=== PATIENT | male | born 1955 | race American Indian/Alaskan Native ===

== ENCOUNTER 2019-09-24 09:46 | Day surgery (SDC) | payer OTHER ==
[~2019-09-24 09:46] MED LIST: ceFAZolin/Water 2 GM/20 ML 2 GM/20 ML SYRINGE IV NR
--- NOTE | 2019-09-24 10:42 | Anesthesia Consultation ---
Anesthesia Consult and Med Hx Date of service: 09/24/19 - Airway Anesthetic Teeth Evaluation: Good ROM Head & Neck: Adequate Mental/Hyoid Distance: Adequate Mallampati Class: Class II Intubation Access Assessment: Good - Pulmonary Exam CTA: Yes - Cardiac Exam Cardiac Exam: No Murmur - Pre-Operative Health Status ASA Pre-Surgery Classification: ASA2 Proposed Anesthetic Plan: General - Pulmonary Hx Smoking: No Hx Asthma: No COPD: No Hx Sleep Apnea: Yes (DX SLEEP APNEA , NO CPAP USE.) - Cardiovascular System Hx Hypertension: No Hx Heart Attack/AMI: No - Central Nervous System Hx Seizures: No Hx Back Pain: Yes (STIFF) Hx Psychiatric Problems: Yes (PTSD) - Hematic Hx Anemia: No Hx Sickle Cell Disease: No - Other Systems Hx Alcohol Use: No Hx Substance Use: No Hx Cancer: No
--- NOTE | 2019-09-24 10:42 | Anesthesia Day of Surgery ---
Anesthesia Day of Surgery - Day of Surgery Patient Examined: Yes Patient H&P Reviewed: Yes Patient is NPO: Yes
[2019-09-24] MEDS ORDERED: FAMOTIDINE 20 MG TAB PO NR (11:00)
[2019-09-24] MEDS ORDERED: GABAPENTIN 300 MG CAP PO NR (11:00)
[2019-09-24] MEDS ORDERED: LACTATED RINGERS 1,000 ML IV SCH ×2 (11:00→12:00)
[2019-09-24] MEDS ORDERED: MIDAZOLAM 2 MG/2 ML INJ IV NR (11:00)
[2019-09-24] MEDS ORDERED: CELECOXIB 200 MG CAP PO NR (11:00)
[2019-09-24] MEDS ORDERED: CELECOXIB 200 MG CAP ONE (11:15)
[2019-09-24] MEDS ORDERED: LACTATED RINGERS 1,000 ML ONE ×2 (11:15→15:30)
[2019-09-24] MEDS ORDERED: GABAPENTIN 300 MG CAP ONE (11:15)
[2019-09-24] MEDS ORDERED: fentaNYL 100 MCG/2 ML INJ IV ONE (12:05)
[2019-09-24] MEDS ORDERED: BUPIVACAINE/PF (0.5%) 5 MG/1 ML 30 ML VIAL INFILTRATI ONE (12:24)
[2019-09-24] MEDS ORDERED: LIDOCAINE MPF (2%) 20 MG/1 ML VIAL 5 ML ONE (14:48)
[2019-09-24] MEDS ORDERED: MIDAZOLAM 2 MG/2 ML INJ ONE (14:48)
[2019-09-24] MEDS ORDERED: ROCURONIUM 50 MG/5 ML INJ IV ONE (14:48)
[2019-09-24] MEDS ORDERED: PROPOFOL 200 MG/20 ML VIAL IV ONE (14:48)
[2019-09-24] MEDS ORDERED: fentaNYL 100 MCG/2 ML INJ ONE (14:49)
[2019-09-24] MEDS ORDERED: ePHEDrine SULFATE 50 MG/1 ML INJ ONE (15:25)
[2019-09-24] MEDS ORDERED: SODIUM CHLORIDE 0.9% IRRIG SOLN 3000 ML IR ONE (15:38)
[2019-09-24] MEDS ORDERED: SODIUM CHLORIDE P/F VIAL 10 ML 10 ML ONE (15:43)
[2019-09-24] MEDS ORDERED: GLYCOPYRROLATE 0.4 MG/2 ML INJ ONE (17:21)
[2019-09-24] MEDS ORDERED: NEOSTIGMINE 10MG/10 ML INJ MDV ONE (17:21)
--- NOTE | 2019-09-24 17:32 | Procedure Note ---
Date of procedure: 09/24/19 Pre-op diagnosis: Rotator cuff tear right shoulder Post-op diagnosis: same Procedure: Arthroscopy right shoulder with subacromial decompression and rotator cuff tendon using suture anchors Procedure The patient was brought to the OR after being given a scalene nerve block for postop pain management . He was placed in the OR table in supine position following induction and intubation by anesthesia patient was placed in the left lateral decubitus position the right upper extremity was prepped and draped in the usual sterile manner. A timeout procedure was done to identify the patient and the correct operative site. Routine arthroscopic portals were made following introduction of the arthroscope and instruments and insufflation of the subacromial space with normal saline solution patient was noted to have a full-thickness rotator cuff tear which extended from the supraspinatus anteriorly towards the infraspinatus posteriorly in addition he was also noted to have abundant synovial bursal thickening as well as significant impingement from the acromion and acromioclavicular joints. Using a tissue ablator the soft tissue was removed from both the bursal tissues as well as the periosteal tissues overlying the distal acromion and acromioclavicular joints A large bur was used to debride the bony impingement again this was done under arthroscopic visualization. The anatomic footprint was then seen and debrided using the tissue ablator. The rotator cuff tendons was grasped using a tissue grasper and appeared to move well in the direction of anatomic repair at the footprint. Next 2 suture anchor sutures were placed into these supraspinatus tendon anteriorly as well as the infraspinatus tendon posteriorly the suture anchors were secured into the greater tuberosity followed by tightening of the sutures and pulling the rotator cuff tendon firmly onto the anatomic footprint arthroscopic photographs were obtained showing good placement of the rotator cuff repair following this the wound was copiously irrigated via stab wounds were repaired with 2 postop dressings were applied the patient was extubated and was taken to postanesthesia recovery in stable condition. Patient will also receive a scalene nerve block for postop pain management Anesthesia: MAC, regional Surgeon: WILLARD TORRES Numerical Control Operator: NANDA KEITA Estimated blood loss: minimal Pathology: none Condition: stable Disposition: PACU
[2019-09-24 18:36] VITALS: BP 113/75
== END 2019-09-24 19:20 | disposition home or self-care (01) ==
LOC: OR 09:46
PROVIDERS: ATTEND Orthopaedic Surgery
DX: M75.101 Unspecified rotator cuff tear or rupture of right shoulder, not specified as traumatic (principal); M75.41 Impingement syndrome of right shoulder; I48.91 Unspecified atrial fibrillation; G47.30 Sleep apnea, unspecified; K21.9 Gastro-esophageal reflux disease without esophagitis; M19.90 Unspecified osteoarthritis, unspecified site; F32.9 Major depressive disorder, single episode, unspecified; F41.9 Anxiety disorder, unspecified; Z98.890 Other specified postprocedural states; Z95.2 Presence of prosthetic heart valve; Z79.899 Other long term (current) drug therapy; Z79.82 Long term (current) use of aspirin; Z86.73 Personal history of transient ischemic attack (TIA), and cerebral infarction without residual deficits
CPT/HCPCS: 29826; 29827; 64415; A4217; C1713; J0690; J2250; J2704; J2710; J3010; J7120; V2790; 64450